=== PATIENT | male | born 1990 | race African-American/Black ===

== ENCOUNTER 2017-04-02 14:53 | Emergency (ER) | payer BC ==
--- NOTE | 2017-04-02 15:12 | EDM.PDOC ---
ED HPI GENERAL MEDICAL PROBLEM - General Chief Complaint: Chest Pain Stated Complaint: light headed/chest pain Time Seen by Provider: 04/02/17 15:06 Source of Information: Reports: Patient History Limitations: Reports: No Limitations - History of Present Illness INITIAL COMMENTS - FREE TEXT/NARRATIVE: History of present illness: [] Patient developed chest pain and right headedness at work around 8:30 this morning with episodes lasting 3-4 minutes the worst being 6/10 pain in his chest with intermittent episodes throughout the day. Patient describes feeling like he was going to pass out feeling hot, vision going out and needing air. He denies any syncope, nausea, vomiting or cough at one point he did feel hot and chilled. Patient is concerned because he has a strong family history of heart disease with heart attacks in family members ages 45-65. 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 Review of systems: As per history of present illness and below otherwise all systems reviewed and negative. Past medical history: As per history of present illness and as reviewed below otherwise noncontributory. Surgical history: As per history of present illness and as reviewed below otherwise noncontributory. Social history: No reported history of drug or alcohol abuse. Family history: As per history of present illness and as reviewed below otherwise noncontributory. Physical exam: General: Well developed, well nourished in NAD HEENT: Atraumatic, normocephalic, pupils reactive, negative for conjunctival pallor or scleral icterus, mucous membranes moist, throat clear, neck supple, nontender, trachea midline. Lungs: Clear to auscultation, breath sounds equal bilaterally, chest nontender. Heart: S1S2, regular, negative for clicks, rubs, or JVD. Abdomen: Soft, nondistended, nontender. Negative for masses or hepatosplenomegaly. Negative for costovertebral tenderness. Pelvis: Stable nontender. Genitourinary: Deferred. Rectal: Deferred. Extremities: Atraumatic, negative for cords or calf pain. Neurovascular unremarkable. Neuro: Awake, alert, oriented. Cranial nerves II through XII unremarkable. Cerebellum unremarkable. Motor and sensory unremarkable throughout. Exam nonfocal. Diagnostics: [] Labs, chest x-ray done with negative troponin, d-dimer was positive however CT chest is negative for PE Therapeutics: [] Patient is allergic to aspirin and did not have any episodes of pain while in the ED therefore nitroglycerin was not given. Signs remained stable Impression: [] Chest pain, near syncope Plan: [] Initially I called the hospitalist for observation, however patient declines admission. Patient is to followup with PMD. He is aware of the risk of sudden and possible debilitation and still wishes to be discharged. Given patient 's stable vital signs, a normal EKG, Definitive disposition and diagnosis as appropriate pending reevaluation and review of above. - Related Data Allergies Allergy/AdvReac Type Severity Reaction Status Date / Time aspirin Allergy Anaphylactic Verified 04/02/17 15:35 Shock Home Meds: Home Meds . [No Known Home Meds] 04/02/17 [History] Past Medical History - Past Health History Medical/Surgical History: Denies Medical/Surgical History Social & Family History - Tobacco Use Smoking Status *Q: Unknown Ever Smoked Second Hand Smoke Exposure: No - Alcohol Use Days Per Week of Alcohol Use: 0 - Recreational Drug Use Recreational Drug Use: No ED ROS GENERAL - Review of Systems Review Of Systems: See Below (See history of present illness) ED EXAM, GENERAL - Physical Exam Exam: See Below (See history of present illness) Course - Vital Signs Last Recorded V/S: Last Vital Signs Temp 36.1 C 04/02/17 14:53 Pulse 58 L 04/02/17 16:22 Resp 14 04/02/17 16:22 BP 118/79 04/02/17 16:22 Pulse Ox 98 04/02/17 16:22 - Orders/Labs/Meds Orders: Active Orders 24 hr Category Date Time Status EKG Documentation Completion [RC] STAT Care 04/02/17 15:13 Active Ang Chest [CT] Stat Exams 04/02/17 17:01 Taken Sodium Chloride 0.9% [Saline Flush] Med 04/02/17 15:13 Active 10 ml FLUSH ASDIRECTED PRN Sodium Chloride 0.9% [Saline Flush] Med 04/02/17 15:13 Active 2.5 ml FLUSH ASDIRECTED PRN Saline Lock Insert [OM.PC] Stat Oth 04/02/17 15:13 Ordered Medication Orders Sodium Chloride (Saline Flush) 10 ml FLUSH ASDIRECTED PRN PRN Reason: Keep Vein Open Sodium Chloride (Saline Flush) 2.5 ml FLUSH ASDIRECTED PRN PRN Reason: Keep Vein Open Labs: Laboratory Tests 04/02/17 04/02/17 04/02/17 Range/Units 15:30 15:30 15:30 WBC 7.30 (4.0-11.0) K/uL RBC 5.02 (4.50-5.90) M/uL Hgb 14.8 (13.0-17.0) g/dL Hct 42.1 (38.0-50.0) % MCV 83.9 (80.0-98.0) fL MCH 29.5 (27.0-32.0) pg MCHC 35.2 (31.0-37.0) g/dL RDW Std Deviation 38.5 (28.0-62.0) fl RDW Coeff of Emeterio 13 (11.0-15.0) % Plt Count 332 (150-400) K/uL MPV 9.00 (7.40-12.00) fL Neut % (Auto) 67.0 (48.0-80.0) % Lymph % (Auto) 25.9 (16.0-40.0) % [place] % (Auto) 6.3 (0.0-15.0) % Eos % (Auto) 0.5 (0.0-7.0) % Baso % (Auto) 0.3 (0.0-1.5) % Neut # (Auto) 4.9 (1.4-5.7) K/uL Lymph # (Auto) 1.9 (0.6-2.4) K/uL [place] # (Auto) 0.5 (0.0-0.8) K/uL Eos # (Auto) 0.0 (0.0-0.7) K/uL Baso # (Auto) 0.0 (0.0-0.1) K/uL Nucleated RBC % 0.0 /100WBC Nucleated RBCs # 0 K/uL D-Dimer, Quantitative (0.0-0.52) mg/LFEU Sodium 136 (136-146) mmol/L Potassium 4.0 (3.5-5.1) mmol/L Chloride 107 (98-110) mmol/L Carbon Dioxide 21 (21-31) mmol/L BUN 12 (6.0-23.0) mg/dL Creatinine 1.1 (0.6-1.5) mg/dL Est Cr Clr Drug Dosing 117.33 mL/min Estimated GFR (MDRD) > 60.0 ml/min Glucose 91 (60-110) mg/dL Calcium 8.9 (8.8-10.8) mg/dL Total Bilirubin 1.4 (0.1-1.5) mg/dL AST 25 (5-40) IU/L ALT 23 (8-54) IU/L Alkaline Phosphatase 72 (40-150) Troponin I < 0.10 (0.0-0.29) NG/ML Total Protein 7.8 (6.0-8.0) g/dL Albumin 4.5 (3.5-5.0) g/dL Globulin 3.3 (2.0-3.5) g/dL Albumin/Globulin Ratio 1.4 (1.3-2.8) /04/13 Range/Units 15:30 WBC (4.0-11.0) K/uL RBC (4.50-5.90) M/uL Hgb (13.0-17.0) g/dL Hct (38.0-50.0) % MCV (80.0-98.0) fL MCH (27.0-32.0) pg MCHC (31.0-37.0) g/dL RDW Std Deviation (28.0-62.0) fl RDW Coeff of Emeterio (11.0-15.0) % Plt Count (150-400) K/uL MPV (7.40-12.00) fL Neut % (Auto) (48.0-80.0) % Lymph % (Auto) (16.0-40.0) % [place] % (Auto) (0.0-15.0) % Eos % (Auto) (0.0-7.0) % Baso % (Auto) (0.0-1.5) % Neut # (Auto) (1.4-5.7) K/uL Lymph # (Auto) (0.6-2.4) K/uL [place] # (Auto) (0.0-0.8) K/uL Eos # (Auto) (0.0-0.7) K/uL Baso # (Auto) (0.0-0.1) K/uL Nucleated RBC % /100WBC Nucleated RBCs # K/uL D-Dimer, Quantitative 1.15 H (0.0-0.52) mg/LFEU Sodium (136-146) mmol/L Potassium (3.5-5.1) mmol/L Chloride (98-110) mmol/L Carbon Dioxide (21-31) mmol/L BUN (6.0-23.0) mg/dL Creatinine (0.6-1.5) mg/dL Est Cr Clr Drug Dosing mL/min Estimated GFR (MDRD) ml/min Glucose (60-110) mg/dL Calcium (8.8-10.8) mg/dL Total Bilirubin (0.1-1.5) mg/dL AST (5-40) IU/L ALT (8-54) IU/L Alkaline Phosphatase (40-150) Troponin I (0.0-0.29) NG/ML Total Protein (6.0-8.0) g/dL Albumin (3.5-5.0) g/dL Globulin (2.0-3.5) g/dL Albumin/Globulin Ratio (1.3-2.8) Meds: Medications Generic Name Dose Route Start Last Admin Trade Name Freq PRN Reason Stop Dose Admin Sodium Chloride 10 ml 04/02/17 15:13 Saline Flush FLUSH ASDIRECTED PRN Keep Vein Open Sodium Chloride 2.5 ml 04/02/17 15:13 Saline Flush FLUSH ASDIRECTED PRN Keep Vein Open Discontinued Medications Generic Name Dose Route Start Last Admin Trade Name Freq PRN Reason Stop Dose Admin Aspirin 324 mg 04/02/17 15:13 Aspirin PO 04/02/17 15:14 ONETIME ONE Iopamidol 50 ml 04/02/17 17:17 04/02/17 17:25 Isovue-370 (76%) IV 04/02/17 17:18 50 ml ONETIME ONE Administration Nitroglycerin 0.4 mg 04/02/17 15:13 Nitrostat SL 04/02/17 15:14 ONETIME ONE Departure - Departure Time of Disposition: 18:06 Disposition: Home, Self-Care 01 Condition: good Clinical Impression: Near syncope Chest pain Qualifiers: Chest pain type: unspecified Qualified Code(s): R07.9 - Chest pain, unspecified Forms: ED Department Discharge Additional Instructions: The following information is given to patients seen in the emergency department who are being discharged to home. This information is to outline your options for follow-up care. We provide all patients seen in our emergency department with a follow-up referral. The need for follow-up, as well as the timing and circumstances, are variable depending upon the specifics of your emergency department visit. If you don't have a primary care physician on staff, we will provide you with a referral. We always advise you to contact your personal physician following an emergency department visit to inform them of the circumstance of the visit and for follow-up with them and/or the need for any referrals to a consulting specialist. The emergency department will also refer you to a specialist when appropriate. This referral assures that you have the opportunity for follow-up care with a specialist. All of these measure are taken in an effort to provide you with optimal care, which includes your follow-up. Under all circumstances we always encourage you to contact your private physician who remains a resource for coordinating your care. When calling for follow-up care, please make the office aware that this follow-up is from your recent emergency room visit. If for any reason you are refused follow-up, please contact the [facility] Emergency Department at and asked to speak to the emergency department charge nurse. Return to ED immediately if any symptoms recur, worsen or change. Followup PMD within one to 2 days for further workup. [facility] [address] [place] [id number] Or see a tele tech: [facility] Dr. Sánchez. [place] [address] [place] [id number] [phone] - My Orders Last 24 Hours: My Active Orders 04/02/17 15:13 EKG Documentation Completion [RC] STAT Sodium Chloride 0.9% [Saline Flush] 10 ml FLUSH ASDIRECTED PRN Sodium Chloride 0.9% [Saline Flush] 2.5 ml FLUSH ASDIRECTED PRN Saline Lock Insert [OM.PC] Stat 04/02/17 17:01 Ang Chest [CT] Stat - Assessment/Plan Last 24 Hours: My Active Orders 04/02/17 15:13 EKG Documentation Completion [RC] STAT Sodium Chloride 0.9% [Saline Flush] 10 ml FLUSH ASDIRECTED PRN Sodium Chloride 0.9% [Saline Flush] 2.5 ml FLUSH ASDIRECTED PRN Saline Lock Insert [OM.PC] Stat 04/02/17 17:01 Ang Chest [CT] Stat
[2017-04-02] MEDS ORDERED: Sodium Chloride 0.9% 2.5 ML Syringe FLUSH PRN (15:13)
[2017-04-02] MEDS ORDERED: Sodium Chloride 0.9% 10 ML Syringe FLUSH PRN (15:13)
[2017-04-02] MEDS ORDERED: Nitroglycerin 0.4 MG Tab.SL SL ONE (15:13)
[2017-04-02] MEDS ORDERED: Aspirin 81 MG Tab.Chew PO ONE (15:13)
[2017-04-02 16:01] LABS: CHLORIDE,CL 107 mmol/L (98-110); SODIUM,NA 136 mmol/L (136-146)
--- NOTE | 2017-04-02 16:06 | CR ---
EXAMINATION: Portable chest radiograph. HISTORY: Chest pain. FINDINGS: The trachea is midline. The cardiomediastinal silhouette is within normal limits. No pulmonary infil trates, effusions or pneumothorax. Osseous structures appear unremarkable. IMPRESSION: No acute cardiopulmonary process.
[2017-04-02] MEDS ORDERED: Iopamidol 755 MG/ML 50 ML Bottle IV ONE (17:17)
[2017-04-02 18:34] VITALS: BP 132/80
--- NOTE | 2017-04-03 10:35 | CT ---
EXAM DATE: 04/02/17 PATIENT'S AGE: 26 Patient: HEENA CALLES Facility: [place], [place] Site . Site : 1990 Study: CT Chest Angio [id number]/[id number] 5:33:26 PM Ordering Physician: Thee Medina Final Report: INDICATION: Chest pain TECHNIQUE: CT chest pulmonary angiogram acquired with i.v. contrast. Coronal and sagittal reformats were obtained. COMPARISON: None FINDINGS: Cardiovascular structures: The pulmonary arteries are unremarkable in appearance with no evidence of acute pulmonary embolism. The heart has an unremarkable appearance and size. No sign of aneurysm or dissection in the thoracic aorta. Mediastinum and shwetha: Soft tissue is noted in the anterior mediastinum which is likely due to residual thymic tissue in this young patient. No mass or adenopathy seen. Lungs: Unremarkable. Pleura and pericardium: No pleural effusions are seen. No significant pericardial effusion is present. Chest wall and axilla: Asymmetric hypertrophy of the right pectoralis major muscle is noted. No mass or adenopathy seen. Bones: No significant findings. Upper abdomen: Unremarkable. IMPRESSION: 1. No CT evidence of pulmonary embolism seen. Dictated by Tom Evans MD @ 04/02/2017 5:50:39 PM Dictated by: Tom Evans MD @ 04/02/2017 17:50:45 (Electronic Signature) Report Signed by Proxy. [facility]ITALYoung
== END 2017-04-02 18:21 | disposition home or self-care (01) ==
LOC: MW.ED 14:53
DX: R55 Syncope and collapse (principal); R07.9 Chest pain, unspecified; Z88.6 Allergy status to analgesic agent
CPT/HCPCS: 36415; 71010; 71275; 80053; 84484; 85025; 85379; 93005; 99285; Q9967; 99284

== ENCOUNTER 2017-04-07 19:09 | Emergency (ER) | payer BC ==
[2017-04-07] MEDS ORDERED: Loratadine 10 MG Tab PO ONE (21:05)
[2017-04-07] MEDS ORDERED: Pseudoephedrine 30 MG Tab PO ONE (21:05)
[2017-04-07] MEDS ORDERED: Ibuprofen 800 MG Tab PO ONE (21:06)
--- NOTE | 2017-04-07 21:28 | EDM.PDOC ---
ED HPI GENERAL MEDICAL PROBLEM - General Chief Complaint: Eye Problems Stated Complaint: PAIN EYES/IRRITATED Time Seen by Provider: 04/07/17 21:00 Source of Information: Reports: Patient History Limitations: Reports: No Limitations - History of Present Illness INITIAL COMMENTS - FREE TEXT/NARRATIVE: History of present illness: [26-year-old male comes in complaining of itching eyes. Indicates that the eyes have itched off and on for the last several weeks. At that the last 3 days it has been intractable. 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 Past medical history: As per history of present illness and as reviewed below otherwise noncontributory. Surgical history: As per history of present illness and as reviewed below otherwise noncontributory. Social history: No reported history of drug or alcohol abuse. Family history: As per history of present illness and as reviewed below otherwise noncontributory. Physical exam: HEENT: Atraumatic, normocephalic, pupils reactive, negative for conjunctival pallor but slight erythema noted, negative for scleral icterus, mucous membranes moist, throat clear, neck supple, nontender, trachea midline. Patient noted to have frontal and maxillary sinus tenderness. Lungs: Clear to auscultation, breath sounds equal bilaterally, chest nontender. Heart: S1S2, regular, negative for clicks, rubs, or JVD. Abdomen: Soft, nondistended, nontender. Negative for masses or hepatosplenomegaly. Negative for costovertebral tenderness. Pelvis: Stable nontender. Genitourinary: Deferred. Rectal: Deferred. Extremities: Atraumatic, negative for cords or calf pain. Neurovascular unremarkable. Neuro: Awake, alert, oriented. Cranial nerves II through XII unremarkable. Cerebellum unremarkable. Motor and sensory unremarkable throughout. Exam nonfocal. Global assessment is generally benign save as noted in the subjective complaint in the history of present illness. Diagnostics: [] Therapeutics: [Sudafed, loratadine, ibuprofen] Impression: [Allergic keratitis sinusitis] Plan: [OTC Claritin-D, ibuprofen OTC, eyedrops] Definitive disposition and diagnosis as appropriate pending reevaluation and review of above. Bilateral Eye Pain Score (Numeric/FACES): 4 Headache Pain Score (Numeric/FACES): 3 - Related Data Allergies Allergy/AdvReac Type Severity Reaction Status Date / Time aspirin Allergy Anaphylactic Verified 04/07/17 19:43 Shock Home Meds: Home Meds . [No Known Home Meds] 04/02/17 [History] Past Medical History - Past Health History Medical/Surgical History: Denies Medical/Surgical History - Infectious Disease History Infectious Disease History: Reports: Chicken Pox - Past Surgical History Musculoskeletal Surgical History: Reports: Arthroscopic Knee Social & Family History - Family History Family Medical History: Noncontributory Cardiac: Reports: Other (See Below) Other Cardiac Family History: Cardiac Disease - Tobacco Use Smoking Status *Q: Never Smoker Second Hand Smoke Exposure: No - Alcohol Use Days Per Week of Alcohol Use: 0 - Recreational Drug Use Recreational Drug Use: No ED ROS GENERAL - Review of Systems Review Of Systems: See Below (See history of present illness) ED EXAM GENERAL W FULL EYE - Physical Exam Exam: See Below (See history of present illness) Course - Vital Signs Last Recorded V/S: Last Vital Signs Temp 36.7 C 04/07/17 19:40 Pulse 71 04/07/17 19:40 Resp 16 04/07/17 19:40 BP 124/72 04/07/17 19:40 Pulse Ox 93 L 04/07/17 19:40 - Orders/Labs/Meds Meds: Medications Discontinued Medications Generic Name Dose Route Start Last Admin Trade Name Freq PRN Reason Stop Dose Admin Ibuprofen 800 mg 04/07/17 21:06 04/07/17 21:56 Motrin PO 04/07/17 21:07 800 mg ONETIME ONE Administration Loratadine 10 mg 04/07/17 21:05 04/07/17 21:57 Claritin PO 04/07/17 21:06 10 mg ONETIME ONE Administration Pseudoephedrine HCl 30 mg 04/07/17 21:05 04/07/17 21:57 Sudogest PO 04/07/17 21:06 30 mg ONETIME ONE Administration Departure - Departure Time of Disposition: 22:13 Disposition: Home, Self-Care 01 Condition: good Clinical Impression: Allergic conjunctivitis, Sinusitis Clinical Impression: (Ruled Out): Conjunctivitis - Discharge Information Forms: ED Department Discharge Additional Instructions: The following information is given to patients seen in the emergency department who are being discharged to home. This information is to outline your options for follow-up care. We provide all patients seen in our emergency department with a follow-up referral. The need for follow-up, as well as the timing and circumstances, are variable depending upon the specifics of your emergency department visit. If you don't have a primary care physician on staff, we will provide you with a referral. We always advise you to contact your personal physician following an emergency department visit to inform them of the circumstance of the visit and for follow-up with them and/or the need for any referrals to a consulting specialist. The emergency department will also refer you to a specialist when appropriate. This referral assures that you have the opportunity for follow-up care with a specialist. All of these measure are taken in an effort to provide you with optimal care, which includes your follow-up. Under all circumstances we always encourage you to contact your private physician who remains a resource for coordinating your care. When calling for follow-up care, please make the office aware that this follow-up is from your recent emergency room visit. If for any reason you are refused follow-up, please contact the [facility] Emergency Department at and asked to speak to the emergency department charge nurse. Use eyedrops/ointment as directed Use allergy medicine [id number] as directed May take ibuprofen [id number] as directed follow up with PCP in 1-2 days May return to ED as needed as discussed
[2017-04-07 22:45] VITALS: BP 131/78
== END 2017-04-07 22:23 | disposition home or self-care (01) ==
LOC: MW.ED 19:09
DX: H10.10 Acute atopic conjunctivitis, unspecified eye (principal); J32.9 Chronic sinusitis, unspecified; H16.8 Other keratitis; Z88.8 Allergy status to other drugs, medicaments and biological substances; Z98.890 Other specified postprocedural states
CPT/HCPCS: 99283; A9270